=== PATIENT | female | born 1970 | race Two or more races ===

== ENCOUNTER 2025-06-06 06:33 | Outpatient (CLI) | payer OTHER ==
[2025-06-06 07:31] LABS: BASO % 0.7 % (0.1-1.2); EOS # 0.34 (0.04-0.54); EOS % 4.7 % (0.7-7.0); LYMPH # 2.55 (1.18-3.74); LYMPH % 35.5 % (19.3-53.1); MEAN PLATELET VOLUME 9.40 fl (9.4-12.4); MONO # 0.41 (0.24-0.82); MONO % 5.7 % (4.7-12.5); NEUT # 3.83 (1.56-6.13); NEUT % 53.3 % (34.0-71.1); RED CELL DISTRIBUTION WIDTH 13.6 % (11.6-14.4)
[2025-06-06 08:37] LABS: ALT/SGPT 27.0 U/L (12-78); AST/SGOT 14.0 U/L (15-37); BILIRUBIN TOTAL 0.53 mg/dL (0.3-1.2); BUN CREA RATIO 31.0 (7.0-25.0); CHOL HDL RATIO 2.1 (0-5.0); CREATININE SERUM 0.64 mg/dL (0.55-1.02); GFR 95.99; GLOBULINA 3.1 G/DL (2.4-3.5); GLUCOSE FASTING 91.0 mg/dL (65-100); HDL 68.0 mg/dl (40-60); LDL 54.0 mg/dl (0-130); OSMOLALITY SERUM 291.0 MOSM/KG (275-295); TSH 0.91 uIU/mL (0.358-3.74); VLDL 19.0 (0-39)
== END 2025-06-06 06:37 | disposition home or self-care (01) ==
LOC: RAD 06:33
PROVIDERS: ATTEND Family Medicine Adult Medicine
DX: I11.9 Hypertensive heart disease without heart failure (principal); R73.01 Impaired fasting glucose; E78.2 Mixed hyperlipidemia; Z12.11 Encounter for screening for malignant neoplasm of colon; E55.9 Vitamin D deficiency, unspecified

== ENCOUNTER 2025-06-25 07:02 | Outpatient (CLI) | payer OTHER | END 2025-06-25 07:04 | disposition home or self-care (01) | LOC: MAMO-SONO 07:02 | PROVIDERS: ATTEND Family Medicine Adult Medicine | DX: Z12.31 Encounter for screening mammogram for malignant neoplasm of breast (principal) ==

== ENCOUNTER 2025-06-25 08:36 | Outpatient (CLI) | payer OTHER | END 2025-06-25 08:37 | disposition home or self-care (01) | LOC: NUCLEAR 08:36 | PROVIDERS: ATTEND Family Medicine Adult Medicine | DX: M81.0 Age-related osteoporosis without current pathological fracture (principal) ==